=== PATIENT | female | born 1975 | race Two or more races ===

== ENCOUNTER 2016-04-24 19:43 | Emergency (ER) | payer MEDICAID ==
[2016-04-24] MEDS ORDERED: TRAMADOL HCL 50 MG TABLET ONE (20:04)
[2016-04-24] MEDS ORDERED: DIPHTH,PERTUSS(ACELL),TET VAC 0.5 ML VIAL IM V ONE (21:53)
[2016-04-24] MEDS ORDERED: AZITHROMYCIN 250 MG TABLET ONE (22:52)
== END 2016-04-24 23:05 | disposition home or self-care (01) ==
LOC: ED 19:43
DX: S01.81XA Laceration without foreign body of other part of head, initial encounter (principal); W55.03XA Scratched by cat, initial encounter; Y93.F9 Activity, other caregiving
CPT/HCPCS: 90715; 90471; 99283 ×2; 12011 ×2; A9270 ×2